=== PATIENT | female | born 1970 ===

== ENCOUNTER 2022-07-22 09:40 | Inpatient (IN) | payer OTHER ==
[~2022-07-22] VITALS: Ht 172.7 cm; Wt 113.9 kg
[2022-07-22] MEDS ORDERED: LASIX40 MG PO (15:38)
[2022-07-22] MEDS ORDERED: CARDURA1 MG PO (15:38)
[2022-07-22] MEDS ORDERED: CARDIZEM CD180 M1 PO (15:38)
[2022-07-22] MEDS ORDERED: ATACAND32 MG PO (15:38)
[2022-07-22] MEDS ORDERED: ALDACTONE25 MG PO (15:39)
[2022-07-22] MEDS ORDERED: METFORMIN HCL1000 M2 PO (15:39)
[2022-07-26] MEDS ORDERED: VITAMIN D3125 MC1 (10:03)
[2022-07-26] MEDS ORDERED: DOXAZOSIN MESYLA2 MG (10:03)
[2022-07-26] MEDS ORDERED: DOXAZOSIN MESYLA4 MG (10:03)
[2022-07-29] MEDS ORDERED: TRAM1TAB98 PO (09:50)
[2022-07-29] MEDS ORDERED: HYOSCYAMINE0.125 M1 SL (09:50)
[2022-07-29] MEDS ORDERED: PROTONIX40 MG PO (09:50)
== END 2022-07-29 13:53 | disposition home or self-care (01) | DRG 331 ==
LOC: O/R 07-26 05:18 → SURH 07-26 05:18 → SURG 07-26 10:45 → SURH 07-26 12:00
PROVIDERS: ADMIT Surgery; ATTEND Surgery
PROC: 0DBP4ZZ Excision of Rectum, Percutaneous Endoscopic Approach (ICD-10-PCS; 2022-07-26)
PROC: 0DJD8ZZ Inspection of Lower Intestinal Tract, Via Natural or Artificial Opening Endoscopic (ICD-10-PCS; 2022-07-26)
PROC: 3E0F7SF Introduction of Other Gas into Respiratory Tract, Via Natural or Artificial Opening (ICD-10-PCS; 2022-07-26)
PROC: 0DTN4ZZ Resection of Sigmoid Colon, Percutaneous Endoscopic Approach (ICD-10-PCS; principal; 2022-07-26 07:22)
DX: K57.32 Diverticulitis of large intestine without perforation or abscess without bleeding (principal); R10.32 Left lower quadrant pain; R19.4 Change in bowel habit; K66.0 Peritoneal adhesions (postprocedural) (postinfection); G47.30 Sleep apnea, unspecified; I11.9 Hypertensive heart disease without heart failure; E11.9 Type 2 diabetes mellitus without complications; Z79.4 Long term (current) use of insulin